=== PATIENT | female | born 1940 | race Caucasian/White ===

== ENCOUNTER → 2017-06-22 | Outpatient (CLI) | payer OTHER ==
[~2017-06-22] MED LIST: ALEN70TA47 PO; ASCO10007 PO; BETA1TAB20 PO; CALC-190 PO; DRON400T2 PO; FISH OIL PO; FURO20TA6 PO; METO-409 PO; RAMI10CA58 PO; RAMI5CAP21 PO; RIVA20TA PO; SIMV10TA6 PO; VITA-380 PO
== END | disposition home or self-care (01) ==
LOC: SHCH 12:54
PROVIDERS: ATTEND Internal Medicine Cardiovascular Disease
DX: I08.1 Rheumatic disorders of both mitral and tricuspid valves (principal); I48.91 Unspecified atrial fibrillation
CPT/HCPCS: 93306

== ENCOUNTER → 2018-01-17 | Outpatient (CLI) | payer OTHER ==
[~2018-01-17] MED LIST changes: -ALEN70TA47 PO; -ASCO10007 PO; -CALC-190 PO; -DRON400T2 PO; -FISH OIL PO; -RAMI10CA58 PO; -RAMI5CAP21 PO; +RAMI5CAP66 PO; -VITA-380 PO
== END | disposition home or self-care (01) ==
LOC: OIH 15:12
PROVIDERS: ATTEND Internal Medicine
DX: M79.672 Pain in left foot (principal); I48.91 Unspecified atrial fibrillation
CPT/HCPCS: 73620

== ENCOUNTER → 2018-03-14 | Outpatient (CLI) | payer OTHER | END | disposition home or self-care (01) | LOC: SHCH 13:02 | PROVIDERS: ATTEND Internal Medicine Cardiovascular Disease | DX: I08.1 Rheumatic disorders of both mitral and tricuspid valves (principal); I42.0 Dilated cardiomyopathy; I48.91 Unspecified atrial fibrillation | CPT/HCPCS: 93306 ==

== ENCOUNTER → 2024-06-21 | Outpatient (CLI) | payer MEDICARE ==
[~2024-06-21] MED LIST changes: -RAMI5CAP66 PO; +RAMI5CAP72 PO; -SIMV10TA6 PO; +SIMV10TA97 PO
--- NOTE | 2024-06-21 12:07 | HMCIMG ---
Exam Type: THORACIC SPINE SERIES 3 views History: THORACIC RADICULOPATHY Comparison: none Findings: Spondylitic and degenerative changes of the dorsal spine are seen. There are degenerative changes of the apophyseal joints as well. The disc spaces are preserved. No fractures or dislocations are noted. No paraspinal soft tissue abnormalities are seen. Impression: 1. DEGENERATIVE CHANGES OF THE SPINE. NO ACUTE FRACTURES OR DISLOCATIONS NOTED AT THIS TIME.
--- NOTE | 2024-06-21 12:07 | HMCIMG ---
Exam Type: CERV SPINE 2-3VWS Clinical Information: CERVICAL RADICULOPATHY Comparison: None FINDINGS: C1 through the top of T1 are seen on the lateral view. The prevertebral soft tissues are normal. No fractures or dislocations are seen. There are spondylytic changes and there are degenerative changes of the facet joints. There is narrowing of the C5-6 and C6-7 discs consistent with degenerative disc disease. The other disc spaces are intact. There is adequate alignment. IMPRESSION: Degenerative changes as noted.
== END | disposition home or self-care (01) ==
LOC: RAH 10:49
PROVIDERS: ATTEND Internal Medicine
DX: S16.1XXA Strain of muscle, fascia and tendon at neck level, initial encounter (principal); M48.02 Spinal stenosis, cervical region; M47.22 Other spondylosis with radiculopathy, cervical region; M47.24 Other spondylosis with radiculopathy, thoracic region; X58.XXXA Exposure to other specified factors, initial encounter; Y93.89 Activity, other specified; Y92.89 Other specified places as the place of occurrence of the external cause; Y99.8 Other external cause status
CPT/HCPCS: 72040; 72070